=== PATIENT | female | born 1990 | race Two or more races ===

== ENCOUNTER 2018-10-06 11:09 | Day surgery (SDC) | payer OTHER ==
[~2018-10-06 11:09] MED LIST: BUPIVACAINE 0.5%-EPI 1:200000 PF 30 ML VIAL ONE
[2018-10-06] MEDS ORDERED: LACTATED RINGERS 1,000 ML IV ONE ×2 (11:23→13:43)
[2018-10-06 11:40] LABS: HCG UR QUAL NEGATIVE
--- NOTE | 2018-10-06 11:48 | ANESTHESIA ---
Pre-Anesthesia VS, & Labs - Diagnosis Desires permanent sterility - Procedure Lap salpingectomy Vital Signs: Temp Pulse Resp BP Pulse Ox 37.3 C 87 16 118/74 100 10/06/18 11:23 10/06/18 11:23 10/06/18 11:23 10/06/18 11:23 10/06/18 11:23 Height 5 ft 2 in Weight (kg) 49.9 kg Body Mass Index 20.5 - NPO >8 hours - Is Patient ?: No - Lab Results Lab results reviewed: Yes Home Medications and Allergies Home Medications: Ambulatory Orders Doxycycline Hyclate 100 mg PO BID 09/28/18 Doxycycline Hyclate 100 mg PO BID 09/28/18 Allergies/Adverse Reactions: Allergies Allergy/AdvReac Type Severity Reaction Status Date / Time No Known Drug Allergies Allergy Verified 09/28/18 10:03 Anes History & Medical History - Anesthetic History Anesthesia Complications: reports: No previous complications Family history of Anesthesia Complications: Denies Family history of Malignant Hyperthermia: Denies - Medical History Cardiovascular: reports: None Pulmonary: reports: None Gastrointestinal: reports: None Urinary: reports: None Neuro: reports: None Musculoskeletal: reports: None Endocrine/Autoimmune: reports: None Blood Disorders: reports: None Skin: reports: Rosacea Smoking Status: Never smoker Psychosocial: reports: No issues indicated Exam General: Alert Dental: WNL Mouth Opening: Greater than 4 Fingerbreadths Neck Mobility: Normal Mallampati classification: I Thyromental Distance: greater than 6 cm Respiratory: Lungs clear Cardiovascular: Regular rate Neurological: Normal gait, Normal speech Mental/Cognitive Status: Alert/Oriented X3, Normal for patient Cognitive Status: Within normal limits Plan Anesthesia Type: General Consent for Procedure(s) Verified and Reviewed: Yes Code Status: Attempt Resuscitation ASA classification: 1-Healthy patient Is this case an emergency?: No
[2018-10-06] MEDS ORDERED: BUPIVACAINE 0.25% PF 30 ML VIAL ONE (12:27)
[2018-10-06] MEDS ORDERED: BUPIVACAINE 0.5%-EPI 1:200000 PF 30 ML VIAL SUBQ ONE ×2 (13:18)
[2018-10-06] MEDS ORDERED: GLYCOPYRROLATE 1 MG/5 ML VIAL IVP ONE (13:48)
[2018-10-06] MEDS ORDERED: ONDANSETRON 4 MG/2 ML VIAL IVP ONE (13:48)
[2018-10-06] MEDS ORDERED: MIDAZOLAM 2 MG/2 ML VIAL IVP ONE (13:48)
[2018-10-06] MEDS ORDERED: NEOSTIGMINE 0.5 MG/1 ML 10 ML MDV IVP ONE (13:48)
[2018-10-06] MEDS ORDERED: DEXAMETHASONE 4 MG/ML VIAL IVP ONE (13:48)
[2018-10-06] MEDS ORDERED: fentaNYL 100 MCG/2 ML VIAL IVP ONE (13:48)
[2018-10-06] MEDS ORDERED: ROCURONIUM 50 MG/5 ML VIAL IVP ONE (13:48)
[2018-10-06] MEDS ORDERED: PROPOFOL 200 MG/20 ML VIAL IVP ONE (13:48)
[2018-10-06] MEDS ORDERED: ACETAMINOPHEN 1,000 MG/100 ML 100 ML IV ONE (13:48)
[2018-10-06] MEDS ORDERED: KETOROLAC 30 MG/ML VIAL IVP ONE (13:48)
[2018-10-06] MEDS ORDERED: HYDROcod/ACETAM 10 MG/325 MG TABLET PO PRN (13:53)
--- NOTE | 2018-10-06 13:57 | OPERATIVE REPORT ---
Operative Report - General Procedure Date: 10/06/18 Planned Procedure: Laparoscopic bilateral salpingectomies Pre-Op Diagnosis: Undesired fertility Procedure Performed: Same as above Post Op Diagnosis: Same as above - Procedure Note Primary Surgeon: Jose Enrique Secondary Surgeon: Evan Anesthesia Provider: Debora Anesthesia Technique: General ET tube Pathology: Portions of both fallopian tubes IV Fluids (mL): 1,000 Estimated Blood Loss (mL): 10 Indications: Undesired fertility Findings: Exam under anesthesia: Normal sized retroverted uterus and normal adnexa Operative findings: The uterus was of normal size shape and appearance. Both tubes and ovaries were normal in appearance. There was a powder burn over the ureter in the left ovarian fossa. There were filmy adhesions in the right lower quadrant. The appendix, the liver edge, and the gallbladder appeared normal. The anterior and posterior cul-de-sacs appeared normal. Complications: None - Other Other Information/Narrative: Procedure: The patient was taken to the operating room, where general endotracheal anesthesia was administered without difficulty. She was then positioned in the low dorsal lithotomy position with her lower extremities in Yellow Fin stirrups. Vagina, perineum, and abdomen were then prepped and draped in a sterile fashion. Procedure Time-Out was then performed. A sterile bivalve speculum was then inserted into the vagina. A tenaculum was placed at the anterior lip of the cervix, and a HUMI uterine manipulator was gently advanced and the balloon inflated. The tenaculum and speculum were then removed from the vagina. Attention was then turned to the laparoscopy. 0.5% Marcaine with epinephrine was injected infraumbilically, then a 7-mm horizontal skin incision made. A Verrees needle was then inserted through the anterior layers of the abdominal wall with saline drop test suggesting intraperitoneal placement. Carbon dioxide gas insufflation was then performed with appropriate opening pressures noted. Once 2 L of gas was instilled, a 0-degree, 5 mm laparoscope was inserted into a 5 mm trocar and passed through the anterior layers of the abdominal wall using Optiview technique. The abdomen was visualized, then 2 additional ports placed at the right and left lower quadrants, first instilling local anesthetic, then placing 5 mm ports. The patient was placed into Trendelenberg and bowel swept out of the cul-de-sac. The right, distal fallopian tube was then grasped and pulled anteriorly and superiorly. The tubo-ovarian ligament was then crossclamped, cauterized, and cut using the PlasmaKinetic, then the mesosalpinx was crossclamped, cauterized, and cut, completely the right fallopian tube from the uterus at the cornual region. The right fallopian tube was then removed from the abdomen. The left distal fallopian tube was then grasped and pulled anteriorly and supe riorly. The tubo-ovarian pedicle was then crossclamped, cauterized, and cut, the distal left fallopian tube from the left ovary. The mesosalpinx was then serially cauterized and cut until the cornual region was reached, then the fallopian tube was crossclamped, cauterized and cut. The surgical sites appeared hemostatic. The left fallopian tube was removed from the abdomen. At this point the laparoscopy was deemed complete, and all trochars were removed from the abdomen. The carbon dioxide gas was then allowed to escape. The incisions were then closed with 4-0 Monocryl in a subcuticular fashion followed by Dermabond skin adhesive. The tenaculum was then removed from the posterior lip of the cervix. The sterile bivalve speculum was then reinserted to ensure that the tenaculum sites were hemostatic. No bleeding was noted, and the speculum was then removed. At this point the procedure was deemed complete. The patient was then replaced supine, awakened, extubated, and transferred to the PACU in stable condition.
[2018-10-06] MEDS ORDERED: HYDROcod/ACETAM 10 MG/325 MG TABLET ONE (14:37)
[2018-10-06 14:58] VITALS: BP 115/65
== END 2018-10-06 11:10 | disposition home or self-care (01) ==
LOC: SDS 11:09
PROVIDERS: ATTEND Obstetrics & Gynecology
PROC: 0UT74ZZ Resection of Bilateral Fallopian Tubes, Percutaneous Endoscopic Approach (ICD-10-PCS; principal; 2018-10-06 12:30)
DX: Z30.2 Encounter for sterilization (principal); L71.9 Rosacea, unspecified; Z79.899 Other long term (current) drug therapy
CPT/HCPCS: 58661; 81025; A9270; J0131; J7120